=== PATIENT | male | born 1960 | race Caucasian/White ===

== ENCOUNTER → 2022-01-14 | Outpatient (CLI) | payer BC, OTHER ==
[~2022-01-14] MED LIST: NO MEDICATIONS
== END ==
LOC: M LABSMTC 11:07
PROVIDERS: ATTEND Anesthesiology
DX: Z01.812 Encounter for preprocedural laboratory examination (principal); Z20.822 Contact with and (suspected) exposure to COVID-19

== ENCOUNTER 2022-01-19 11:22 | Day surgery (SDC) | payer BC, OTHER ==
[~2022-01-19] VITALS: Ht 180.3 cm; Wt 72.9 kg
[~2022-01-19 11:22] MED LIST changes: +LIDOCAINE 1% SDV 5ML VIAL As Ordered ONE; +OFLOXACIN 0.3 % (OCUFLOX) OPTH SOL 5ML OD SCH; +PHENYLEPHRINE 2.5% OPHTH SOL 2ML OD SCH; +PROPARACAINE 0.5% OPHTH SOL 15ML OD ONE; +TROPICAMIDE 1% OPHTH SOLN 2ML OD SCH
[2022-01-19] MEDS ORDERED: INSULIN LISPRO (NovoLOG) PER UNIT SC PRN (12:10)
[2022-01-19] MEDS ORDERED: fentaNYL 100 MCG/2 ML INJECTION As Ordered ONE (12:47)
[2022-01-19] MEDS ORDERED: MIDAZOLAM INJ 2MG/2ML VIAL (J2250 PER 1MG) As Ordered ONE (12:47)
[2022-01-19 13:54] VITALS: BP 140/85
== END 2022-01-19 14:12 | disposition home or self-care (01) ==
LOC: M SDC 11:22
PROVIDERS: ATTEND Ophthalmology
DX: H25.89 Other age-related cataract (principal); F17.210 Nicotine dependence, cigarettes, uncomplicated
CPT/HCPCS: 66982; J2250; J3010

== ENCOUNTER → 2022-02-18 | Outpatient (CLI) | payer BC, OTHER ==
[~2022-02-18] MED LIST changes: -LIDOCAINE 1% SDV 5ML VIAL As Ordered ONE; -OFLOXACIN 0.3 % (OCUFLOX) OPTH SOL 5ML OD SCH; -PHENYLEPHRINE 2.5% OPHTH SOL 2ML OD SCH; +PREDOPD; -PROPARACAINE 0.5% OPHTH SOL 15ML OD ONE; -TROPICAMIDE 1% OPHTH SOLN 2ML OD SCH
== END ==
LOC: M LABSMTC 09:54
PROVIDERS: ATTEND Anesthesiology
DX: Z01.818 Encounter for other preprocedural examination (principal); Z20.822 Contact with and (suspected) exposure to COVID-19

== ENCOUNTER 2022-02-23 09:12 | Day surgery (SDC) | payer BC, OTHER ==
[~2022-02-23] VITALS: Ht 180.3 cm; Wt 70.8 kg
[~2022-02-23 09:12] MED LIST changes: +LIDOCAINE 1% SDV 5ML VIAL As Ordered ONE; +LR 1,000 ML IV SCH; +TETRACAINE 0.5% OPHTH SOLN 4ML OS SCH
[2022-02-23] MEDS: PHENYLEPHRINE 2.5% OPHTH SOL 2ML OS SCH ×2 (09:42→10:06)
[2022-02-23] MEDS: CYCLOPENTOLATE 1% OPHTH SOLN 2 ML BTL OS SCH ×2 (09:43→10:06)
[2022-02-23] MEDS: FLURBIPROFEN 0.03% OPHTH SOLN 2.5 ML OS SCH ×2 (09:43→10:06)
[2022-02-23] MEDS ORDERED: ONDANSETRON 4MG/2ML VIAL As Ordered ONE (11:26)
[2022-02-23] MEDS ORDERED: MIDAZOLAM INJ 2MG/2ML VIAL (J2250 PER 1MG) As Ordered ONE (11:36)
[2022-02-23] MEDS ORDERED: fentaNYL 100 MCG/2 ML INJECTION As Ordered ONE (11:38)
[2022-02-23 12:06] VITALS: BP 134/76
== END 2022-02-23 12:21 | disposition home or self-care (01) ==
LOC: M SDC 09:12
PROVIDERS: ATTEND Ophthalmology
DX: H25.12 Age-related nuclear cataract, left eye (principal); H26.8 Other specified cataract; F17.210 Nicotine dependence, cigarettes, uncomplicated; Z79.52 Long term (current) use of systemic steroids
CPT/HCPCS: 66982; J2250; J2405; J3010

== ENCOUNTER 2022-07-21 09:02 | Emergency (ER) | payer BC, OTHER ==
[~2022-07-21] VITALS: Ht 182.9 cm; Wt 70.0 kg
[~2022-07-21 09:02] MED LIST changes: -LIDOCAINE 1% SDV 5ML VIAL As Ordered ONE; -LR 1,000 ML IV SCH; -TETRACAINE 0.5% OPHTH SOLN 4ML OS SCH
[2022-07-21] MEDS ORDERED: BRIM5DRO4 (09:19)
[2022-07-21 09:45] LABS: BASO % 0.5 % (0.0-1.0); EOS # 0.1 10^3/uL (0.0-0.5); EOS % 0.8 % (0.0-3.0); HEMATOCRIT 41.7 % (42.0-52.0); HEMOGLOBIN 14.2 g/dl (13.5-17.5); LYMPH # 0.8 10^3/uL (1.5-5.0); LYMPH % 10.9 % (24.0-44.0); MEAN CORPUSCULAR HEMOGLOBIN 33.7 pg (27.0-33.0); MEAN CORPUSCULAR HGB CONC 34.1 g/dl (32.0-36.5); MONO # 0.9 10^3/uL (0.0-0.8); MONO % 12.2 % (2.0-8.0); NEUTROPHILS # 5.7 10^3/uL (1.5-8.5); NEUTROPHILS % 75.3 % (36.0-66.0); PLATELET COUNT, AUTOMATED 193 10^3/uL (150-450); RED BLOOD COUNT 4.21 10^6/uL (4.30-6.10); WHITE BLOOD COUNT 7.5 10^3/uL (4.0-10.0)
[2022-07-21 10:36] LABS: BLOOD UREA NITROGEN 13 MG/DL (9-23); CALCIUM LEVEL 8.5 MG/DL (8.5-10.1); CARBON DIOXIDE LEVEL 25 MMOL/L (20-31); CHLORIDE LEVEL 100 MMOL/L (98-107); CREATININE FOR GFR 0.73 MG/DL (0.70-1.30); GLOMERULAR FILTRATION RATE > 60.0 (>56); GLUCOSE, FASTING 117 MG/DL (60-100); POTASSIUM SERUM 4.6 MMOL/L (3.5-5.1); SODIUM LEVEL 134 MMOL/L (136-145)
[2022-07-21] MEDS ORDERED: LIDOCAINE 5% (LIDODERM) PATCH TD ONE (11:20)
[2022-07-21] MEDS ORDERED: diazePAM 10MG/2ML SYRINGE (J3360 PER 5MG) IV ONE (11:20)
[2022-07-21] MEDS ORDERED: KETOROLAC 30 MG/ML 1ML VIAL IV ONE (11:20)
[2022-07-21] MEDS ORDERED: METH-1165 PO (13:19)
[2022-07-21] MEDS ORDERED: ASPE4PAD TOP (13:19)
[2022-07-21] MEDS ORDERED: NAPR-837 PO (13:19)
[2022-07-21 13:32] VITALS: BP 121/72
== END 2022-07-21 13:45 | disposition home or self-care (01) ==
LOC: M ED 09:02
DX: M51.36 Other intervertebral disc degeneration, lumbar region (principal); M25.551 Pain in right hip; M25.78 Osteophyte, vertebrae; I70.0 Atherosclerosis of aorta; F17.200 Nicotine dependence, unspecified, uncomplicated; Z79.899 Other long term (current) drug therapy; Z98.49 Cataract extraction status, unspecified eye; Z98.890 Other specified postprocedural states
CPT/HCPCS: 72110; 73502; 80048; 81000; 85025; 87086; 96374; 96375; 99283; J1885; J3360

== ENCOUNTER → 2023-09-21 | Outpatient (REF) | payer BC, OTHER ==
[~2023-09-21] MED LIST changes: +ASPE4PAD TOP; +BRIM5DRO4; +METH-1165 PO; +NAPR-837 PO
== END ==
LOC: M SFHCDERM 18:02
PROVIDERS: ATTEND Physician Assistant
DX: L57.8 Other skin changes due to chronic exposure to nonionizing radiation (principal)

== ENCOUNTER → 2024-08-21 | Outpatient (CLI) | payer BC ==
[2024-08-21 08:00] LABS: BLOOD UREA NITROGEN 16 MG/DL (9-23); CREATININE FOR GFR 0.71 MG/DL (0.70-1.30); GLOMERULAR FILTRATION RATE > 60.0 (>49)
== END ==
LOC: M LAB 07:13
PROVIDERS: ATTEND Otolaryngology
DX: J38.01 Paralysis of vocal cords and larynx, unilateral (principal); R49.0 Dysphonia

== ENCOUNTER → 2024-08-25 | Outpatient (CLI) | payer BC ==
[~2024-08-25] MED LIST changes: +ISOVUE-370 76% 100ML VIAL As Ordered ONE
== END ==
LOC: M RAD 14:41
PROVIDERS: ATTEND Otolaryngology
DX: R07.0 Pain in throat (principal); J38.01 Paralysis of vocal cords and larynx, unilateral; K11.1 Hypertrophy of salivary gland
CPT/HCPCS: 70491; 71260; Q9967

== ENCOUNTER → 2024-10-11 | Outpatient (CLI) | payer BC ==
[~2024-10-11] MED LIST changes: +BARIUM SULFATE 700 MG TABLET (E-Z-DISK) As Ordered ONE; +E-Z-PAQUE 96% w/w SUSP 176GM BTL As Ordered ONE; -ISOVUE-370 76% 100ML VIAL As Ordered ONE; +VARIBAR NECTAR 40% w/v 240ML SUSP BTL As Ordered ONE; +VARIBAR PUDDING 40% w/v 230ML TUBE As Ordered ONE
== END ==
LOC: M RAD 11:10
PROVIDERS: ATTEND Otolaryngology
DX: R13.10 Dysphagia, unspecified (principal)

== ENCOUNTER → 2024-11-09 | Outpatient (CLI) | payer BC ==
[~2024-11-09] MED LIST changes: -BARIUM SULFATE 700 MG TABLET (E-Z-DISK) As Ordered ONE; -E-Z-PAQUE 96% w/w SUSP 176GM BTL As Ordered ONE; -VARIBAR NECTAR 40% w/v 240ML SUSP BTL As Ordered ONE; -VARIBAR PUDDING 40% w/v 230ML TUBE As Ordered ONE
[2024-11-09 13:17] LABS: FREE T3 4.1 PG/ML (2.3-4.2); FREE T4 1.21 NG/DL (0.89-1.76); THYROID STIMULATING HORMONE 2.69 uIU/ML (0.55-4.78)
== END ==
LOC: M LAB 11:39
PROVIDERS: ATTEND Otolaryngology
DX: R53.83 Other fatigue (principal)

== ENCOUNTER → 2024-12-25 | Outpatient (CLI) | payer BC ==
[2024-12-25 08:13] LABS: BASO # 0.1 10^3/uL (0.0-0.2); BASO % 0.8 % (0.0-1.0); EOS # 0.1 10^3/uL (0.0-0.5); EOS % 0.8 % (0.0-3.0); HEMATOCRIT 36.1 % (42.0-52.0); HEMOGLOBIN 12.3 g/dl (13.5-17.5); LYMPH # 1.2 10^3/uL (1.5-5.0); LYMPH % 19.1 % (24.0-44.0); MEAN CORPUSCULAR HEMOGLOBIN 33.8 pg (27.0-33.0); MEAN CORPUSCULAR HGB CONC 34.1 g/dl (32.0-36.5); MEAN CORPUSCULAR VOLUME 99.2 fl (80.0-96.0); MONO # 0.7 10^3/uL (0.0-0.8); NEUTROPHILS % 67.1 % (36.0-66.0); PLATELET COUNT, AUTOMATED 198 10^3/uL (150-450); RED BLOOD COUNT 3.64 10^6/uL (4.30-6.10)
[2024-12-25 08:36] LABS: ALBUMIN 3.7 G/DL (3.2-5.2); ALKALINE PHOSPHATASE 95 U/L (40-129); ALT/SGPT 32 U/L (7.0-40); AST/SGOT 24 U/L (<34); BILIRUBIN,TOTAL 0.5 MG/DL (0.3-1.2); BLOOD UREA NITROGEN 13 MG/DL (9-23); CALCIUM LEVEL 8.8 MG/DL (8.3-10.6); CARBON DIOXIDE LEVEL 27 MMOL/L (20-31); CHLORIDE LEVEL 102 MMOL/L (98-107); CREATININE FOR GFR 0.71 MG/DL (0.70-1.30); GLOMERULAR FILTRATION RATE > 90.0 (>49); GLUCOSE, FASTING 103 MG/DL (74-106); POTASSIUM SERUM 4.5 MMOL/L (3.5-5.1); SODIUM LEVEL 136 MMOL/L (136-145); TOTAL PROTEIN 6.8 G/DL (5.7-8.2)
== END ==
LOC: M LAB 07:13
PROVIDERS: ATTEND Family Medicine
DX: Z01.818 Encounter for other preprocedural examination (principal)

== ENCOUNTER 2025-01-11 11:08 | Day surgery (SDC) | payer BC ==
[~2025-01-11] VITALS: Ht 180.3 cm; Wt 65.3 kg
[2025-01-11] MEDS ORDERED: propofoL 200 MG/20 ML VIAL As Ordered ONE (13:35)
[2025-01-11] MEDS ORDERED: ONDANSETRON 4MG 2ML VIAL As Ordered ONE (13:35)
[2025-01-11] MEDS ORDERED: LIDOCAINE 2% 100MG/5ML SDV (FOR ANES.) As Ordered ONE (13:36)
[2025-01-11] MEDS ORDERED: MIDAZOLAM INJ 2MG/2ML VIAL As Ordered ONE (13:36)
[2025-01-11] MEDS ORDERED: ROCURONIUM BROMIDE 50MG/5ML VIAL As Ordered ONE (13:36)
[2025-01-11] MEDS ORDERED: SUGAMMADEX SODIUM 500 MG/5 ML VIAL As Ordered ONE (13:36)
[2025-01-11] MEDS ORDERED: fentaNYL 100 MCG/2 ML INJECTION As Ordered ONE (13:37)
[2025-01-11] MEDS ORDERED: ACETAMINOPHEN 1000MG/100ML IV BAG As Ordered ONE (13:38)
[2025-01-11] MEDS: OXYMETAZOLINE 0.05% NASAL SPRAY As Ordered ONE (14:00)
[2025-01-11] MEDS: LIDOCAINE W/EPINEPHRINE 1% 20ML VIAL As Ordered ONE (14:14)
[2025-01-11] MEDS: METHYLENE BLUE 0.5% (5MG/ML) 10 ML AMP As Ordered ONE (15:00)
[2025-01-11] MEDS ORDERED: fentaNYL 100 MCG/2 ML INJECTION IV PRN (15:40)
[2025-01-11] MEDS ORDERED: oxyCODONE 5MG TAB PO PRN (15:40)
[2025-01-11] MEDS ORDERED: ONDANSETRON 4MG 2ML VIAL IV PRN (15:40)
[2025-01-11] MEDS ORDERED: LR 1,000 ML IV SCH (15:40)
[2025-01-11] MEDS ORDERED: HYDROMORPHONE HCL 0.5 MG/ 0.5 ML SYRINGE IV PRN (15:40)
[2025-01-11] MEDS ORDERED: MEPERIDINE 25 MG/ML 1ML VIAL IV PRN (15:40)
[2025-01-11 16:23] VITALS: BP 174/85; TEMP 97.1; O2SAT 98
== END 2025-01-11 16:43 | disposition home or self-care (01) ==
LOC: M SDC 11:08
PROVIDERS: ATTEND Otolaryngology
DX: C14.0 Malignant neoplasm of pharynx, unspecified (principal); C12 Malignant neoplasm of pyriform sinus; J38.01 Paralysis of vocal cords and larynx, unilateral; R49.0 Dysphonia; Z87.891 Personal history of nicotine dependence
CPT/HCPCS: 31536; 88305; J0131; J1100; J2250; J2405; J3010; Q9968